=== PATIENT | female | born 1960 | race Two or more races ===

== ENCOUNTER 2024-10-14 09:35 | Emergency (ER) | payer OTHER ==
[~2024-10-14] VITALS: Ht 162.6 cm; Wt 59.0 kg
[2024-10-14] MEDS ORDERED: ZESTRIL40 M1 (10:21)
[2024-10-14] MEDS ORDERED: TOPROL XL50 M1 (10:22)
[2024-10-14] MEDS ORDERED: METFORMIN HCL1000 MG (10:22)
[2024-10-14] MEDS ORDERED: GLIMEPIRIDE4 MG (10:23)
[2024-10-14] MEDS ORDERED: EFFEXOR XR75 MG (10:23)
[2024-10-14] MEDS ORDERED: FAMOtidine 10 MG/ML (4ML VIAL) IV STA (10:45)
[2024-10-14] MEDS ORDERED: 0.9 % SODIUM CHLORIDE 1,000 ML IV STA (10:48)
[2024-10-14] MEDS ORDERED: METOCLOPRAMIDE HCL 10 MG in DEXTROSE 5 % IN WATER 50 ML IV ONE (11:00)
[2024-10-14 12:08] LABS: HEMATOCRIT 45.1 % (36.0-45.00); HEMOGLOBIN 15.2 g/dL (12.0-15.00); MEAN CELL VOLUME 82.2 fL (80.00-100.00); MEAN CORPUSCULAR HEMOGLOBIN 27.6 pg (27.00-32.0); MEAN CORPUSCULAR HGB CONC 33.6 g/dl (32.0-36.0); PLATELET COUNT 297 K/uL (150-450); RED BLOOD COUNT 5.49 M/uL (4.00-6.00); RED CELL DISTRIBUTION WIDTH 14.9 % (11.5-14.5)
[2024-10-14 13:15] LABS: PH,URINE 5.5 (5.0-8.0); URINE APPEARANCE Clear; URINE BILIRRUBIN Negative (NEGATIVE); URINE BLOOD Small; URINE COLOR Dark Yellow; URINE KETONE Negative (NEGATIVE); URINE LEUKOCYTE Small; URINE NITRATE Negative; URINE PROTEIN 30 (NEGATIVE)
[2024-10-14 13:16] LABS: CALCIUM 9.6 mg/dL (8.5-10.1); CREATININE SERUM 0.67 mg/dL (0.55-1.02); GFR 88.33; POTASSIUM 3.73 mEq/L (3.5-5.1)
[2024-10-14 13:20] LABS: URINE BACTERIA 127.2 uL (0.0-1933); URINE EPITHELIAL CELLS 30.3 uL (0.0-38.8); URINE WBC 94.3 uL (0.0-23.2)
[2024-10-14 13:38] LABS: URINE GLUCOSE 250 MG/DL (NEGATIVE)
[2024-10-14 13:41] LABS: URINE MUCUS SCANT
== END 2024-10-14 15:25 | disposition home or self-care (01) ==
LOC: ER 09:35
PROVIDERS: General Practice
DX: K29.70 Gastritis, unspecified, without bleeding (principal); N39.0 Urinary tract infection, site not specified; R10.9 Unspecified abdominal pain; R11.10 Vomiting, unspecified; I10 Essential (primary) hypertension; E11.9 Type 2 diabetes mellitus without complications; Z79.84 Long term (current) use of oral hypoglycemic drugs; Z88.2 Allergy status to sulfonamides